=== PATIENT | male | born 1970 | race Caucasian/White ===

== ENCOUNTER 2024-10-16 15:48 | Emergency (ER) | payer OTHER ==
[~2024-10-16] VITALS: Ht 165.1 cm; Wt 64.0 kg
[2024-10-16 15:53] VITALS: O2SAT 98
[2024-10-16] MEDS: SODIUM CHLORIDE 0.9% 1,000 ML IV ONE (16:15)
[2024-10-16] MEDS: TETANUS, DIPHTHERIA, PERTUSSIS VAC/PF 0.5ML (>10YR OLD) IM ONE (16:15)
[2024-10-16] MEDS: MORPHINE SULFATE 4 MG/ML INJ (FOR IV/IM USE) IV ONE (16:19)
[2024-10-16] MEDS: ONDANSETRON HCL 4MG/2ML INJ IV ONE (16:20)
[2024-10-16 16:45] LABS: BASOPHILS % 0.3 % (0.0-2.0); EOSINOPHILS % 1.2 % (0.0-5.0); HEMATOCRIT. 40.7 % (42.0-52.0); HEMOGLOBIN. 14.1 g/dL (14.0-18.0); LYMPHOCYTES % 15.9 % (20.0-50.0); MEAN PLATELET VOLUME 8.8 fl (7.4-10.4); MONOCYTES % 5.2 % (2.0-8.0); NEUTROPHILS % 77.4 % (40.0-76.0); PLATELET 206 x1000/uL (130-400); RED BLOOD CELL COUNT 4.65 mill/uL (4.7-6.1); RED CELL DISTRIBUTION WIDTH 13.9 % (11.6-14.6)
[2024-10-16 16:53] LABS: INR 1.0
[2024-10-16 16:58] LABS: CREATININE 0.9 mg/dL (0.6-1.3)
[2024-10-16 16:59] LABS: ETHANOL BLOOD 44 mg/dL (<10); UREA NITROGEN BLOOD 14 mg/dL (9-23)
[2024-10-16 17:00] LABS: ASPARTATE AMINOTRANSFERASE 22 IU/L (<34)
[2024-10-16 17:01] LABS: BILIRUBIN DIRECT 0.2 mg/dL (<=3.0); BILIRUBIN TOTAL 0.5 mg/dL (0.1-1.0); PROTEIN TOTAL 7.6 g/dL (6.0-8.3)
[2024-10-16] MEDS: LIDOCAINE HCL/EPINEPHRINE 1%-EPI 1:100,000 10ML VIAL INFIL ONE (17:30)
[2024-10-16] MEDS ORDERED: KETOROLAC 30MG/ML VIAL IV ONE (18:15)
[2024-10-16] MEDS: KETOROLAC 30MG/ML VIAL IV SCH (19:53)
[2024-10-16] MEDS ORDERED: CEPH500T MT (21:43)
[2024-10-16] MEDS ORDERED: TOPUD PO (21:43)
[2024-10-16] MEDS ORDERED: IBUP-2028 MT (21:43)
[2024-10-16 22:03] VITALS: BP 141/85; PULSE 69; RESP 17; TEMP 36.5; O2SAT 98
[2024-10-16] MEDS ORDERED: IOHEXOL-300 100 ML BOTTLE ONE (23:03)
== END 2024-10-16 22:07 | disposition home or self-care (01) ==
LOC: ER 15:48
DX: S01.81XA Laceration without foreign body of other part of head, initial encounter (principal); E11.9 Type 2 diabetes mellitus without complications; Z79.899 Other long term (current) drug therapy; Z98.890 Other specified postprocedural states; W18.39XA Other fall on same level, initial encounter; Y93.89 Activity, other specified; Y92.89 Other specified places as the place of occurrence of the external cause; Y99.8 Other external cause status
CPT/HCPCS: 80076; 80048; 80320; 83690; 85025; 85610; 85730; 86850; 86900; 86901; 36415; 71045; 72170; 73060; 73070; 73090; 70450; 70486; 71260; 72125; 74177; 90715; 93005; 12011; 90471; 96361; 96374; 96375; 99285; Q9967; J1885; J2405; J2270; J7030; Z7610 ×2; G0480